=== PATIENT | female | born 1975 | race Hispanic/Latino ===

== ENCOUNTER 2017-05-07 08:55 | Day surgery (SDC) | payer OTHER ==
[2017-05-03 08:19] VITALS: BMI 51.2
[2017-05-07 09:58] VITALS: RESP 16
[2017-05-07] MEDS ORDERED: Propofol 10 mg/ml Inj (20 ML) ONE ×2 (12:20→12:26)
[2017-05-07] MEDS ORDERED: Sodium Chloride 0.9% 1,000 ML IV SCH (12:45)
[2017-05-07 14:04] VITALS: BP 137/96; PULSE 70; TEMP 97.3; O2SAT 100
== END 2017-05-07 13:59 | disposition home or self-care (01) ==
LOC: ENDO 08:55
PROVIDERS: ATTEND Internal Medicine
DX: K29.50 Unspecified chronic gastritis without bleeding (principal); K44.9 Diaphragmatic hernia without obstruction or gangrene; Z98.84 Bariatric surgery status
CPT/HCPCS: 43239; 84703; 88305; 88342; J2001; J2704; J7040 ×2

== ENCOUNTER → 2018-01-20 | Day surgery (SDC) | payer OTHER ==
[2017-12-13 10:24] VITALS: BMI 51.2
[~2018-01-20] MED LIST: Iohexol 240 (50 ml) ONE; Midazolam 2 MG/2 ML VIAL ONE; Propofol 10 mg/ml Inj (20 ML) ONE; Rocuronium 10 mg/ml (5 ml) ONE; Sevoflurane - Inhalation Anesthetic Liq (250 ml) ONE; Succinylcholine 200 mg/10 ml Inj IV ONE
[2018-01-20 13:41] VITALS: RESP 16; O2SAT 100
[2018-01-20 17:55] VITALS: BP 144/94; PULSE 77; TEMP 97.6
--- NOTE | 2018-01-21 08:37 | RAD ---
Date of service: 01/20/2018 PROCEDURE: Fluoroscopy up to 1 hr HISTORY: INCOMPLETE ARELI PROCEDURE COMPARISON: TECHNIQUE: 52.8 sec of fluoro time. 36.70 mGy. One image submitted FINDINGS: A single image shows the endoscope in the midline terminating in the upper abdomen. There is no visualization of the common duct IMPRESSION: Incomplete endoscopy
== END | disposition home or self-care (01) ==
LOC: ENDO 12:47
PROVIDERS: ATTEND Internal Medicine Gastroenterology
DX: Z48.815 Encounter for surgical aftercare following surgery on the digestive system (principal); Z98.84 Bariatric surgery status; Z98.0 Intestinal bypass and anastomosis status
CPT/HCPCS: 43235; 84703; J0330; J2001; J2250; J2704; J3010; J7040; Q9966

== ENCOUNTER 2018-03-21 16:35 | Outpatient (CLI) | payer OTHER | END 2018-03-21 16:36 | disposition home or self-care (01) | LOC: RAD 16:35 ==

== ENCOUNTER 2018-04-19 08:16 | Outpatient (CLI) | payer OTHER | END 2018-04-19 08:17 | disposition home or self-care (01) | LOC: LAB 08:16 ==